=== PATIENT | male | born 2000 | race Caucasian/White ===

== ENCOUNTER 2023-03-23 16:15 | Emergency (ER) | payer OTHER ==
[~2023-03-23] VITALS: Ht 188 cm; Wt 81.6 kg
[2023-03-23 16:38] VITALS: BP_SYST 123
[2023-03-23 20:20] LABS: BILIRUBIN,URINE NEGATIVE (NEGATIVE); BLOOD, URINE NEGATIVE (NEGATIVE); CLARITY/URINE CLEAR (CLEAR); COLOR,URINE YELLOW (YELLOW); GLUCOSE,URINE NEGATIVE (NEGATIVE); KETONES,URINE NEGATIVE (NEGATIVE); LEUKOCYTE ESTERASE ,URINE NEGATIVE (NEGATIVE); NITRITE, URINE NEGATIVE (NEGATIVE); PROTEIN URINE 1+ (NEGATIVE); UROBILINOGEN,URINE 0.2 (0.2-1.0)
[2023-03-23 20:24] LABS: BACTERIA,URINE RARE /HPF (None Seen); RBC,URINE NONE SEEN /HPF (0-3); WBC,URINE 0-3 /HPF (0-3)
[2023-03-23 20:25] LABS: MUCUS,URINE 3+ /LPF (None Seen)
[2023-03-23 20:47] VITALS: BP_SYST 130
== END 2023-03-23 20:47 | disposition home or self-care (01) ==
LOC: SED 16:15
DX: Q55.20 Unspecified congenital malformations of testis and scrotum (principal); I86.1 Scrotal varices; Z79.899 Other long term (current) drug therapy
CPT/HCPCS: 36415; 76870-TC; 81000; 87086; 87491; 99284

== ENCOUNTER 2023-04-06 15:05 | Emergency (ER) | payer OTHER ==
[~2023-04-06] VITALS: Ht 188 cm; Wt 72.6 kg
[2023-04-06 15:27] VITALS: BP_SYST 131; PULSE 62; RESP 18; TEMP 98.3; O2SAT 98
[2023-04-06] MEDS ORDERED: TRAM50TA2 PO ×3 (15:49→16:20)
[2023-04-06] MEDS ORDERED: DOXY100C5 PO ×3 (15:56→16:20)
[2023-04-06 16:07] VITALS: BP_SYST 131; PULSE 62; RESP 18; TEMP 98.3; O2SAT 98
== END 2023-04-06 16:08 | disposition home or self-care (01) ==
LOC: SED 15:05
DX: I86.1 Scrotal varices (principal); N50.89 Other specified disorders of the male genital organs; N50.812 Left testicular pain; Z79.899 Other long term (current) drug therapy
CPT/HCPCS: 99283